=== PATIENT | male | born 1940 | race Caucasian/White ===

== ENCOUNTER → 2016-10-27 | Day surgery (SDC) | payer MEDICARE ==
[~2016-10-27] VITALS: Ht 170.2 cm; Wt 68.2 kg
[2016-10-27] VITALS (9 sets, daily range): BP systolic 101–147; BP diastolic 54–79; PULSE 60–68; RESP 12–18; O2SAT 90–99
[~2016-10-27] MED LIST: ACET-171 PO; ASPI-973 PO; Bupivacaine-MPF 0.5% 30 mL Inj INFILTRATE ONE; CHOL10008 PO; CeFAZolin 2 Gm/50 mL D5W IV Premix IV ONE; DOCO1CAP3 PO; Dexamethasone 4 mg/mL Inj IVPUSH PRN; Dexamethasone 4 mg/mL Inj ONE; EPHEDrine Sulfate 50 mg/mL Inj IVPUSH PRN; EPHEDrine/NS 5 mg/mL 5 mL Syringe ONE; HYDROmorphone 1 mg/mL Inj IVPUSH PRN; IBUP-1827 PO; LEVO25TA5 PO; LOSA25TA21 PO; Lactated Ringer's 1,000 ML IV SCH; Lactated Ringer's 500 ML IV PRN; METO-386 PO; MULT-1073 PO; MetoCLOpramide 5 mg/mL 2 mL Inj IVPUSH PRN; MetoCLOpramide 5 mg/mL 2 mL Inj ONE; NITR0.4T SL; OXYC-530 PO; Ondansetron 2 mg/mL 2 mL Inj IVPUSH PRN; Ondansetron 2 mg/mL 2 mL Inj ONE; POLY17PO6 PO; Phenylephrine 10,000 mCg/mL Inj IVPUSH PRN; Propofol 10,000 mCg/mL 20 mL Inj ONE; SIMV40TA5 PO; fentaNYL-PF 50 mCg/mL 2 mL Inj IVPUSH PRN
[2016-10-27] MEDS: Lactated Ringer's 1,000 ML IV SCH ×3 (06:31→08:10)
--- NOTE | 2016-10-27 07:28 | PCM.HPANE ---
Patient Data Date of Service: Oct 27, 2016 Surgeon Admitting Provider: Attending Provider:Yanely Chavez MD Primary Care Physician:Tristin Fitzgerald MD Other Provider:Krystle Gunderson Anesthesia Reason for Visit Left Inguinal Hernia Ht/WT & BMI Height (Feet): 5 Height (Inches): 7 Weight (Kilograms): 68.2 Body Mass Index 23.00 Allergies Coded Allergies: crab (Verified Allergy, Unknown, 10/20/16) Past Anesthesia History Anesthesia History: Denies:: Anesthesia Reactions Diabetes History Hx Diabetes?: No MRSA MRSA: No Medications Blood Thinner: Aspirin Hypertension Medication: Yes Home Meds Incl Beta Tunde: Yes Date Beta Tunde Taken: Oct 26, 2016 Time Beta Tunde Taken: 1730 Reported Medications Cholecalciferol (Vitamin D3) (Vitamin D3)1,000 Unit Tab.chew1,000 Unit PO DAILY 10/20/16 Docosahexanoic Acid/Epa (Fish Oil Concentrate Softgel)1 Each Capsule1 Each PO DAILY 10/20/16 Simvastatin 40 Mg Qezvbr96 Mg PO HS 30 Days Ref 0 10/20/16 Nitroglycerin SL (Nitrostat)0.4 Mg Tab.subl0.4 Mg SL Q5MIN PRN For Chest Pain # 1 BOTTLE 10/20/16 Metoprolol Succinate ER 25 Mg Tab.er.24h25 Mg PO DAILY Ref 0 10/20/16 Losartan Potassium 25 Mg Ppaitb68.5 Mg PO DAILY 10/20/16 Levothyroxine 25 Mcg Ijcgze25 Mcg PO DAILY Ref 0 10/20/16 Multivits-Min/FA/Lycopene/Lut (Centrum Silver Tablet)1 Each Tablet1 Each PO DAILY 10/20/16 Aspirin 81 Mg Vayedn84 Mg PO DAILY Ref 0 10/20/16 History History of ENT Problems?: Yes HEENT History: Positive for:: Sinus Problem (hx of sinus surgery) Denture Type: None Teeth Condition: Missing Teeth Hx of Heart Problems?: Yes Cardiovascular History: Positive for:: Cardiac Surgery (hx of 2011) Coronary Artery Disease Hypertension Denies:: AICD Abdominal Aortic Aneurism Chest Pain Congestive Heart Failure Edema Heart Murmur Irregular Heartbeat Pacemaker Peripheral Vascular Rheumatic Fever Thrombophlebitis Other Cardiac History: s/p IN '11 s/p stent x4 all in same vessel on one occasion Hx of Respiratory Problem?: No Respiratory History: Denies:: Asthma COPD Emphysema Oxygen Administration Pneumonia Tuberculosis Use of C-PAP Machine Hx Neurologic Problems?: No Neurological History: Denies:: CVA Seizures TIA Hx of GI Problems?: No Gastrointestinal History: Denies:: Gastroesphageal Reflux Liver Disease Hx of Problems?: No Male Hx: Denies:: Prostate Problems Skin History: Denies:: History Skin Disorders? 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 Hx Alcohol Use: NoHx Substance Use: No Smoking Status: Former Smoker (quit 50yrs ago) Have You Smoked inLast 12 mo: No Stop/Bang Treated for Sleep Apnea?: No Do You Have a CPAP Machine?: No S-Snoring: Do You Snore Loudly: Yes T-Tired: feel tired, fatigued: No O-Obsered: Observed not breath: No P-Blood Pressure: treated: Yes B- Body Mass Index > 35 kg/m2: No A- Age over 50: Yes N- Neck Large Circumference: No G- Gender Male: Yes SAE Risk Assessment: High Risk, =/>3 Yes SAE Category 2: Yes Risk Assessment Category Category 1A: Patient has history of documented sleep apnea, and HAS NOT received any narcotic, sedative or anesthesia administration during this stay. Category 1B: Patient has history of documented sleep apnea, and HAS received any narcotic , sedative or anesthesia administration during this stay Category 2: Patient has SUSPECTED Obstructive Sleep Apnea, and HAS received any narcotic , sedative or anesthesia administration during this stay. Category 3: Patient has SUSPECTED Obstructive Sleep Apnea and HAS NOT received narcotic, sedative or anesthesia administration during this stay. Category 4: Outpatient in Procedural Areas with known sleep apnea or who screen positive for High Risk via the STOP/BANG questionnaire. Exam Exam Vital Signs Vital Signs Date Time Temp Pulse Resp B/P Pulse Ox O2 Delivery O2 Flow Rate FiO2 10/27/16 06:17 36.4 60 16 147/69 97 Room Air General Appearance: Alert, Oriented X3, Cooperative, No Acute Distress HEENT/AIRWAY: MP 1 Lungs: Normal Air Movement Heart: Exam Unremarkable, Regular Rate/Rhythm, Normal S1, Normal S2, No Murmurs /Rubs/Gallops Meds/Labs/Diagnostics Admission Meds Current Medications Lactated Ringer's (Lr) 1,000 ml @ 120 mls/hr Q8H20M IV Last administered on t 06:31; Start 10/27/16 at 05:00; Stop 10/27/16 at 13:19 Plan Impression Patient chart reviewed, patient interviewed and anesthestic plan with risks, benefits, and alternatives discussed, and informed consent obtained. NPO per Anesth. Guidelines: No ASA Physical Status: ASA3 Severe Disease Anesthetic Plan: GA Bene/Risks/Altern/Consents: Yes HP Complete Prior to Induction: Yes Chema Dodge MD Oct 27, 2016 07:28
--- NOTE | 2016-10-27 09:34 | PCM.SURGOP ---
Surgical Operative Report Date of Service: Oct 27, 2016 Pre Operative Diagnosis Left internal hernia Post Operative Diagnosis Direct left inguinal hernia Procedure: Open left inguinal hernia repair with mesh Surgeon and Supervisor Denture Department: Surgeon: Yanely Chavez MD Assistants: Keyona Lipscomb M.D., R3 Indication for Procedure This is a 76-year-old male who presented with a tender left groin bulge. On examination he was found to have an inguinal hernia. He was very active and his symptoms were keeping him from performing his usual exercises. Therefore he desired repair. Findings: 1. Direct hernia defect. 2. Cord lipoma, removed. 3. No indirect defect. Procedure Details The patient was brought to the operating room and placed in supine position. General anesthesia with an LMA was smoothly induced. A warming blanket and SCDs were placed. Antibiotics were infused. The operative field was prepped and draped in sterile fashion. A pause was performed to confirm the correct patient, procedure, site, and side. An oblique incision was made between the ASIS and pubic tubercle. Subcutaneous tissue was dissected with electrocautery. The external oblique was incised sharply and divided with Metzenbaum scissors. The spermatic cord was identified, dissected free of surrounding tissues, and surrounded with a Cintia drain for retraction. There was a clear, small, direct defect. A cord lipoma was identified and was suture ligated and removed with care to preserve the vas deferens and other cord structures. Careful examination revealed that there was no indirect hernia. The direct hernia defect did not contain viscera. It was reduced and the conjoined tendon was plicated to the shelving edge of the inguinal ligament using several interrupted 3-0 PDS stitches. Attention was then turned to mesh placement. The direct space was noted to be thinned and weak with a tiny bulge. A piece of 3 inch by 6 inch ultralight Bard Softmesh was fashioned to size with care taken to provide adequate coverage of the floor. Interrupted 3-0 PDS stitches were then used to suture it into place. The first stitch was placed in the tissue overlying the pubic tubercle with greater than 1 cm of overlap to prevent recurrence. Additional stitches were then used at 1.5 cm intervals to suture the lateral aspect of the mesh to the shelving edge of the inguinal ligament. Several stitches were then placed medially to affix the mesh to the conjoined tendon. At the end of the case, the floor was covered with mesh. Two tails were fashioned to recreate the internal ring. These were sutured to each other and to the shelving edge of the inguinal ligament. The new ring was large enough to pass the cord and the tip of the surgeon's fifth digit. The Cintia drain was removed and the external oblique was then closed with a running 3-0 Vicryl stitch. Subcutaneous tissue was closed with 3-0 Vicryl stitches. The skin was closed with a running 4-0 Monocryl stitch. Marcaine 0.5% with epinephrine was infused in the skin for postoperative analgesia. A sterile dressing was placed. The patient was awakened from general anesthesia and taken to postoperative care unit in good condition. Complications There were no periprocedural complications identified. Surgical Specimen Removed: Yes Specimen sent to Pathology: No Surgical Specimen description: Cord lipoma Anesthetic Plan: GA Grafts, Implants: Implants-See Implant Record Output, Estimated Blood Loss: 2 (ml) Blood Administration during cornelius: No Yanely Chavez MD Oct 27, 2016 09:34
--- NOTE | 2016-10-27 15:39 | PCM.ANEP1 ---
Post Anesthesia PACU Phase 1 Assessment Date of Service: Oct 27, 2016 Vital Signs Vital Signs Date Time Temp Pulse Resp B/P Pulse Ox O2 Delivery O2 Flow Rate FiO2 10/27/16 10:01 66 16 120/79 96 10/27/16 09:40 68 16 111/64 92 Room Air 10/27/16 09:35 36.0 68 17 103/74 96 Nasal Cannula 2 10/27/16 09:20 62 12 111/61 94 Nasal Cannula 2 10/27/16 09:15 64 14 105/61 90 Room Air 10/27/16 09:11 65 18 101/60 94 Room Air 10/27/16 09:05 63 16 108/54 99 Simple Mask 8 10/27/16 09:03 36.9 67 15 109/59 97 Simple Mask 8 Anesthetic Administered: GA Level of Alertness: Awake, talking CHAPMAN's with Equal Strength: Yes Pain: No Pain Scale Score: 0 Nausea or Vomiting: No CV Function & Hydration Stable: Yes Airway Device: none Lungs: Normal Air Movement Summary 10/27/16 10:01 66 16 120/79 96 PACU Phase 2 Assessment Complications: No Follow up Care: N/A Patient Instructions Provided: N/A Cehma Dodge MD Oct 27, 2016 15:39
== END | disposition home or self-care (01) ==
LOC: SAS 05:38
PROVIDERS: ATTEND Surgery
DX: K40.90 Unilateral inguinal hernia, without obstruction or gangrene, not specified as recurrent (principal); I10 Essential (primary) hypertension; I25.10 Atherosclerotic heart disease of native coronary artery without angina pectoris; E07.9 Disorder of thyroid, unspecified; Z87.891 Personal history of nicotine dependence; Z79.82 Long term (current) use of aspirin; Z79.899 Other long term (current) drug therapy